=== PATIENT | male | born 1945 | race Caucasian/White ===

== ENCOUNTER 2019-10-04 13:40 | Outpatient (CLI) | payer MEDICARE, OTHER, SELFPAY ==
--- NOTE | ~2019-10-04 | CT_ITS ---
EXAMINATION: CT chest wo con DATE: 10/04/2019 13:58 INDICATION: Dyspnea TECHNIQUE: Computed tomography (CT) of the chest was performed without intravenous contrast. Automate d exposure control and iterative reconstruction technique were employed. Exam dose: 225.31 mGy-cm to jensen exam DLP. COMPARISON: 10/26/2018 2 view chest FINDINGS: Normal heart size. Trace pericardial fluid. No thoracic aortic aneurysm. No hilar or medias tinal mass lesion or lymphadenopathy. There are calcified left hilar nodes and calcified left lower l obe pulmonary granuloma consistent with old pulmonary granulomatous disease. No pulmonary infiltrate or consolidation or pulmonary mass lesion is detected. Included upper abdominal structures are unremarkable other than diverticulosis of the descending colo n. Status post anterior lower cervical spine surgical fusion. Fixation devices are present in the proxim al right humerus. 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 IMPRESSION: No active cardiopulmonary disease Old pulmonary granulomatous disease Reviewed, dictated and finalized at [facility]. Reviewed, dictated and finalized at [facility]. T DESK ADMIN
== END 2019-10-04 13:41 | disposition home or self-care (01) ==
PROVIDERS: PCP Internal Medicine; Visit Provider Internal Medicine Critical Care Medicine
DX: R06.09 Other forms of dyspnea (principal); R91.8 Other nonspecific abnormal finding of lung field
CPT/HCPCS: 71250

== ENCOUNTER 2019-10-09 08:19 | Outpatient (CLI) | payer MEDICARE, OTHER, SELFPAY ==
--- NOTE | 2019-10-09 09:47 | PCRCNOTE ---
UNABLE TO OBTAIN DLCO TESTING.
--- NOTE | 2019-10-15 01:13 | WPDPFTINT ---
PFT Interpretation PFT Interpretation: DOS: 10/09/2019 REQUESTING: Dr. Mariama Woodall REASON FOR TESTING: Dyspnea PULMONARY FUNCTION TESTS Spirometry: FEV1 101%, FVC 90%, and FEV1% all normal. Non-statistically significant change in with bronchodilator. Lung volumes: Normal total lung capacity, residual volume and airway resistance. Diffusion: DLCO not obtainable due to the patient becoming lightheaded and close to passing out. Flow volume loop: Normal. IMPRESSION: Normal spirometry and lung volumes. Diffusion was not obtainable due to patient's lightheadedness and near syncope. Lack of response to bronchodilator should not preclude use if clinically indicated. Ai Farmer MD
== END 2019-10-09 08:20 | disposition home or self-care (01) ==
PROVIDERS: PCP Internal Medicine; Visit Provider Internal Medicine Critical Care Medicine
DX: R06.09 Other forms of dyspnea (principal)
CPT/HCPCS: 94060; 94726

== ENCOUNTER 2020-01-22 08:34 | Outpatient (CLI) | payer MEDICARE, OTHER, SELFPAY ==
--- NOTE | 2020-01-28 14:17 | WPDPFTINT ---
PFT Interpretation PFT Interpretation: DOS: 01/22/2020 REQUESTING: Vinny Garces REASON: Dyspnea, bronchitis METHACHOLINE CHALLENGE The patient had a baseline pulmonary function test on 10/09/2019 showing a normal FEV1 101% predicted. He proceed with a methacholine challenge using progressively increasing doses of methacholine. Level 1 - saline Level 2 - 0.025 mg Level 3 - 0.25 mg Level 4 - 2.5 mg Level 5 - 10 mg Level 6 - 25 mg The patient had a drop of 22% in the FEV1 at the 4th dose, 2.5 mg of methacholine. The FEV1 was 77% predicted. The study was stopped at this level. After bronchodilator therapy the FEV1 improved to 88% predicted. IMPRESSION: This is a positive methacholine challenge with the PD20 2.5 mg. The best use of a methacholine challenge is to rule out asthma in the setting of negative results. This patient's results can be seen in asthma.
== END 2020-01-22 08:35 | disposition home or self-care (01) ==
PROVIDERS: PCP Internal Medicine; Visit Provider Internal Medicine Critical Care Medicine
DX: J20.9 Acute bronchitis, unspecified (principal)
CPT/HCPCS: 94070; J7674